=== PATIENT | female | born 1975 | race Caucasian/White ===

== ENCOUNTER 2016-12-13 13:27 | Emergency (ER) | payer SELFPAY ==
[~2016-12-13] VITALS: Ht 170.2 cm; Wt 72.6 kg
[~2016-12-13 13:27] MED LIST: ACET-461 PO; IBUP-1773 PO; IBUP-30 PO
[2016-12-13 13:30] VITALS: BP 125/90
== END 2016-12-13 14:18 | disposition left against medical advice (07) ==
LOC: EDUNIT# 13:27 → ER 13:28
DX: R55 Syncope and collapse (principal); F17.210 Nicotine dependence, cigarettes, uncomplicated; Z53.21 Procedure and treatment not carried out due to patient leaving prior to being seen by health care provider

== ENCOUNTER 2016-12-13 19:11 | Emergency (ER) | payer SELFPAY ==
[~2016-12-13] VITALS: Ht 170.2 cm; Wt 72.6 kg
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
[2016-12-13 20:30] VITALS: BP 138/107
== END 2016-12-13 20:30 | disposition home or self-care (01) ==
LOC: EDUNIT# 19:11 → ER 19:12
DX: F41.9 Anxiety disorder, unspecified (principal); F17.210 Nicotine dependence, cigarettes, uncomplicated
CPT/HCPCS: 99285

== ENCOUNTER 2021-12-26 00:17 | Emergency (ER) | payer SELFPAY ==
--- NOTE | 2021-12-26 01:00 | ED Lower Extremity ---
General Chief Complaint: Lower Extremity Stated Complaint: LEFT ANKLE PAIN Source: patient History of Present Illness Date Seen by Provider: December 26, 2021 Time Seen by Provider: 00:45 Initial Comments PT ARRIVES VIA POV WITH ANOTHER FEMALE PT STATES AROUND 1730 TONIGHT, SHE WAS WALKING DOWN HER BASEMENT STEPS AND SLIPPED ON THE LAST STEP--FLOOR WAS WET--AND TWISTED HER LEFT ANKLE PT WAS BAREFOOT AT THE TIME NO OTHER INJURIES FROM THE INCIDENT. NO PARESTHESIAS OR MOTOR DEFICITS NO PRIOR INJURIES TO THIS FOOT/LEG. C/O PAIN ALL AROUND ANKLE AND INTO CALF HAS NOT TAKEN ANYTHING FOR PAIN AT ANY TIME, HAS NOT APPLIED ICE, ETC. PT STATES SHE IS LIVING IN A "SOBER LIVING HOUSE" STATES HER FIRST NIGHT OF WORK AT [employer] IS TONIGHT--WAS SUPPOSED TO BE THERE AT MIDNIGHT TO START WORK, BUT CAME HERE INSTEAD WANTS A WORK NOTE ON ARRIVAL. LMP 12/09/21. S/P BTL. PCP: [facility]. Allergies and Home Medications Allergies Coded Allergies: No Known Drug Allergies (Unverified , 01/25/13) Patient Home Medication List Home Medication List Reviewed: Yes Ibuprofen (Ibuprofen) 600 Mg Tablet, 600 MG PO Q6H PRN for PAIN Prescribed by: JAD BURGOS MD on 03/31/15 0912 Tramadol HCl (Ultram) 50 Mg Tablet, 50 MG PO Q4H Prescribed by: ZACKERY BELTRAN on 12/26/21 0157 Review of Systems Constitutional: no symptoms reported : No LMP: December 09, 2021 Control/STD Prophylaxis: Other (BTL) Musculoskeletal: see HPI Skin: no symptoms reported Psychiatric/Neurological: No Symptoms Reported Past Vjfveqw-Nbwtaj-Rosilj Hx Patient Social History Tobacco Use?: Yes Tobacco type used: Cigarettes Smoking Status: Current Everyday Smoker Use of E-Cig and/or Vaping dev: Yes E-Cig or Vaping type used: Nicotine Substance use?: Yes Substance type: Amphetamines, Methamphetamine, Marijuana Additional substance use comme: PAST HX Alcohol Use?: Yes Pt feels they are or have been: No Immunizations Up To Date Tetanus Booster (TDap): Less than 5yrs PED Vaccines UTD: Yes Influenza Vaccine Up-to-Date: No; Not Current Past Medical History Surgeries: Yes Tubal Ligation Respiratory: Yes (INTUBATED 04/2014 FOR OVERDOSE) Cardiac: No Neurological: No : No Reproductive Disorders: No Genitourinary: No Gastrointestinal: No Musculoskeletal: No Endocrine: No HEENT: Yes (POOR DENTITION) Cancer: No Psychosocial: Yes (POLYSUBSTANCE ABUSE WITH OVERDOSES) Anxiety, Depression Integumentary: No Blood Disorders: No Adverse Reaction/Blood Tranf: No Family Medical History Diabetes mellitus 19 MOTHER FH: chronic obstructive pulmonary disease 19 FATHER FH: cirrhosis FH: mastectomy Hypercholesterolemia 19 MOTHER Hypertension 19 MOTHER Myocardial infarction 19 FATHER (2011) Ovarian cyst 19 MOTHER Seizure disorder 19 MOTHER (AT AGE 6-15) Varicose veins G8 SISTER Heart Disease, Diabetes SOCIAL HISTORY: -SMOKES 1 PPD, PLUS VAPES NICOTINE -ETOH--PAST USE, DENIES RECENT USE -DRUGS--EXTENSIVE HISTORY OF POLYSUBSTANCE ABUSE AND OVERDOSES--REQUIRED INTUBATION 04/2014. METH, MARIJUANA, BENZODIAZEPINES, RX DRUGS. Physical Exam Vital Signs Vital Signs - First Documented 12/26/21 00:41 Temp 36.0 Pulse 89 Resp 16 B/P (MAP) 122/72 (89) Pulse Ox 95 O2 Delivery Room Air Capillary Refill : Height, Weight, BMI Height: 5'7.00" Weight: 160lbs. 0.0oz. 72.462238ex; 21.09 BMI Method:Stated General Appearance: WD/WN, no apparent distress, other (PT TEXTING/PLAYING ON PHONE ON ARRIVAL AND THIS CONTINUES THROUGHOUT EXAM AND ER VISIT) HEENT: other (POOR DENTITION--FEW REMAINING TEETH DECAYED DOWN TO GUMS) Hips: bilateral hip normal inspection Legs: left leg other (TENDERNESS TO LEFT CALF. NO SWELLING OR BRUISING. ) Knees: left knee normal inspection Ankles: left ankle bone tenderness, left ankle limited range of motion, left ankle pain, left ankle soft tissue tenderness, left ankle swelling, left ankle other (DIFFUSE TENDERNESS AROUND LEFT ANKLE, WITH MILD SWELLING TO LATERAL MALLEOLLUS. TENDERNESS TO ACHILLES AREA. NO DEFORMITY. NO BRUISING OR OTHER EXTERNAL EVIDENCE OF TRAUMA) Feet: left foot normal inspection Neurologic/Tendon: normal sensation, normal motor functions, normal tendon functions Neurologic/Psychiatric: no motor/sensory deficits, alert, normal mood/affect, oriented x 3 Skin: normal color, warm/dry, other (EXTENSIVE SORES/SCARS/SCABS TO FACE) Procedures/Interventions Splinting and Joint Reduction : Pepe wrap: Yes Immobilizers: Step Light Walker s/m/lg Ordered: Crutches Progress/Results/Core Measures Results/Orders My Orders Orders - ZACKERY BELTRAN DO Tibia/Fibula, Left, 2 Views (12/26/21 00:53) Ankle, Left, 3 Views (12/26/21 00:53) Pepe Bandage (12/26/21 01:49) Crutches (12/26/21 01:49) Steplite (12/26/21 01:49) Rx-Tramadol Hcl (Rx-Ultram) (12/26/21 01:49) Rx-Tramadol Hcl (Rx-Ultram) (12/26/21 01:57) Vital Signs/I&O 12/26/21 12/26/21 00:41 01:59 Temp 36.0 36.0 Pulse 89 89 Resp 16 16 B/P (MAP) 122/72 (89) 122/72 Pulse Ox 95 95 O2 Delivery Room Air Room Air Diagnostic Imaging Comments XRAYS--PENDING RADIOLOGIST REVIEW LEFT ANKLE AND LEFT TIB-FIB--FIBULAR FRACTURE Reviewed: Reviewed by Me Departure Impression Primary Impression: Closed left fibular fracture Disposition: HOME, SELF-CARE Condition: Stable Departure-Patient Inst. Decision time for Depature: 01:50 Referrals: [facility] (PCP/Family) Primary Care Physician WALT SLATER MD Patient Instructions: Fibula Fracture (DC), Going Up and Down Curbs or Stairs With a Walker or Crutches, How to Use Crutches, Walking Boot Add. Discharge Instructions: ICE TO AREA AT 20 MINUTE INTERVALS PEPE WRAP AND BOOT AT ALL TIMES NO WEIGHT BEARING--USE CRUTCHES AT ALL TIMES ELEVATE LEG MUCH POSSIBLE FOLLOW UP WITH DR. SLATER THIS WEEK FOR FURTHER CARE All discharge instructions reviewed with patient and/or family. Voiced understanding. Scripts Tramadol HCl (Ultram) 50 Mg Tablet 50 MG PO Q4H for Pain, #20 TAB Prov: ZACKERY BELTRAN DO 12/26/21 Work/School Note: Work Release Form Date Seen in the Emergency Department: December 26, 2021 Restrictions: Need Release from Doctor ZACKERY BELTRAN DO December 26, 2021 01:00
[2021-12-26] MEDS ORDERED: TRAM-42 PO (01:56)
[2021-12-26 01:59] VITALS: BP 122/72
--- NOTE | 2021-12-26 05:36 | Diagnostic Imaging Report ---
INDICATION: ankle pain COMPARISON: None. FINDINGS: Multiple radiographic views of the left ankle were obtained. There is a small extraosseous calcification anterior to the tibiotalar joint space only visualized on lateral view. This is of uncertain origin and clinical significance. Small avulsed fracture fragment cannot be excluded. Otherwise, no additional acute osseous abnormality is seen. Joint spaces are maintained. Note is made of mild asymmetric lateral soft tissue swelling. No unexpected radiopaque foreign bodies are seen. IMPRESSION: 1. Small extraosseous calcification anterior to the tibiotalar joint space as above. Again, small avulsed fracture fragment cannot be excluded. Dictated by: Dictated on workstation # [id number]
--- NOTE | 2021-12-26 05:47 | Diagnostic Imaging Report ---
INDICATION: Pain status post fall. COMPARISON: Ankle exam from same day FINDINGS: Multiple radiographic views of the left tibia and fibula were obtained and show acute nondisplaced obliquely oriented fracture involving the proximal fibular shaft. Note is also made of small extraosseous calcification anterior to the tibiotalar joint space, which is of uncertain clinical significance or etiology. Small avulsed fracture fragment cannot be excluded. Joint spaces are maintained. No unexpected radiopaque foreign bodies are seen. Mild asymmetric lateral soft tissue swelling is noted. IMPRESSION: 1. Acute nondisplaced fracture of the proximal left fibula. 2. Small extraosseous calcifications into the tibiotalar joint space. Small avulsed fracture fragment cannot be excluded. Dictated by: Dictated on workstation # [id number]
== END 2021-12-26 02:04 | disposition home or self-care (01) ==
LOC: EDUNIT# 00:17 → ER 00:23
DX: S82.435A Nondisplaced oblique fracture of shaft of left fibula, initial encounter for closed fracture (principal); F17.210 Nicotine dependence, cigarettes, uncomplicated; F17.290 Nicotine dependence, other tobacco product, uncomplicated; W10.9XXA Fall (on) (from) unspecified stairs and steps, initial encounter; Y92.008 Other place in unspecified non-institutional (private) residence as the place of occurrence of the external cause
CPT/HCPCS: 73590; 73610